=== PATIENT | female | born 1930 | race Two or more races ===

== ENCOUNTER → 2017-08-20 | Outpatient (CLI) | payer OTHER ==
[~2017-08-20] MED LIST: COZAAR25 MG; FOLIVANE-F CAP1 EACH; LISINOPRIL20 MG; PENTOXIFYLLINE400 MG
== END | disposition home or self-care (01) ==
LOC: WOUND MED 09:05
DX: L97.312 Non-pressure chronic ulcer of right ankle with fat layer exposed (principal)
CPT/HCPCS: 11042; 11045; G0463; A4554; A4930; A6196; A6216

== ENCOUNTER → 2017-09-03 | Outpatient (CLI) | payer OTHER | END | disposition home or self-care (01) | LOC: WOUND MED 11:13 | DX: L97.312 Non-pressure chronic ulcer of right ankle with fat layer exposed (principal); L03.126 Acute lymphangitis of left lower limb | CPT/HCPCS: 11042; 11045; A4554; A4930; A6212; A6216; A6266 ==

== ENCOUNTER → 2017-09-10 | Outpatient (CLI) | payer OTHER | END | disposition home or self-care (01) | LOC: WOUND MED 09:41 | DX: L97.312 Non-pressure chronic ulcer of right ankle with fat layer exposed (principal); L03.126 Acute lymphangitis of left lower limb | CPT/HCPCS: 11042; 11045; A4554; A4930; A6216; A6266 ==

== ENCOUNTER → 2018-08-16 | Emergency (ER) | payer OTHER ==
[~2018-08-16] VITALS: Ht 121.9 cm; Wt 38.6 kg
[~2018-08-16] MED LIST changes: +COZAAR100 MG PO; +VASOFLEX TABLE1 EACH PO
== END | disposition home or self-care (01) ==
LOC: ER 10:56
DX: I16.1 Hypertensive emergency (principal); I10 Essential (primary) hypertension; G57.83 Other specified mononeuropathies of bilateral lower limbs; E86.0 Dehydration